=== PATIENT | male | born 1970 | race Caucasian/White ===

== ENCOUNTER 2020-11-10 19:46 | Observation (INO) | payer BC ==
[~2020-11-10 19:46] MED LIST: Heparin 10,000 UNITS/ 10 ML VIAL ONE; Iopamidol-370 76% 500 ML 1 ML ONE
[2020-11-10] MEDS ORDERED: Aspirin Chewable 81 MG TAB ONE (20:11)
--- NOTE | 2020-11-10 20:16 | RAD ---
Portable frontal chest radiograph: 11/10/2020 COMPARISON: None HISTORY: Shortness of breath with exertion FINDINGS: Midline sternotomy wires are present. There is prominence of the cardiac silhouette. Mild i ncreased linear interstitial density noted, particularly laterally on the right. Mild elevation of the right hemidiaphragm noted. No focal consolidation or alveolar edema. IMPRESSION: Portable chest radiograph as detailed above.
[2020-11-10 20:20] LABS: #Basophils 0.1 thou/uL (0.0-0.2); #Eosinphils 0.2 thou/uL (0.0-0.7); #Lymphocytes 2.1 thou/uL (1.20-3.40); #Monocytes 0.9 thou/uL (0.11-0.59); #Neutrophils 8.3 thou/uL (1.40-6.50); %Eosinophils 1.4 % (0.0-10.0); %Lymphocytes 17.8 % (21.0-51.0); %Monocytes 7.8 % (0.0-10.0); %Neutrophils 72.1 % (42.0-75.0); Hemoglobin 17.4 g/dL (14.0-18.0); Mean Corpuscular HGB CONC 34.4 g/dL (32.0-36.0); Mean Corpuscular Hemoglobin 33.8 pg (27.0-31.0); Mean Corpuscular Volume 98.4 fL (78.0-98.0); Platelet Count 248 thou/uL (130-400); RBC Distribution Width 13.5 % (11.5-14.5); Red Blood Cell (RBC) Count 5.14 mill/uL (4.70-6.10); White Blood Cell (WBC) Count 11.5 thou/uL (4.8-10.8)
[2020-11-10] MEDS ORDERED: Fentanyl 100 MCG/2 ML VIAL ONE ×2 (20:22→20:44)
[2020-11-10] MEDS ORDERED: Adenosine 6 MG/2 ML VIAL ONE ×3 (20:26→20:50)
[2020-11-10 20:30] LABS: Prothrombin Time 12.9 sec (12.0-14.7)
[2020-11-10 20:38] LABS: Anion Gap 12 mmol/L (10-20); BUN (Urea Nitrogen) 15 mg/dL (8.9-20.6); Calc. Creatinine Clearance 0 mL/min (70-130); Carbon Dioxide 28 mmol/L (22-29); Chloride 104 mmol/L (98-107); Sodium 140 mmol/L (136-145)
[2020-11-10 20:39] LABS: ALT (SGPT) 31 U/L (8-55); AST (SGOT) 30 U/L (5-34); Albumin 4.1 g/dL (3.5-5.0); Alkaline Phosphatase 67 U/L (40-110); Bilirubin, Total 0.8 mg/dL (0.2-1.2); Calcium 9.5 mg/dL (7.8-10.44); Globulin 3.5 g/dL (2.4-3.5); Glucose 98 mg/dL (70-105); Protein, Total 7.6 g/dL (6.0-8.3)
[2020-11-10] MEDS ORDERED: Nitroglycerin 50 MG/250 ML BOT 250 ML ONE (20:42)
[2020-11-10] MEDS ORDERED: Metoprolol Tartrate 5 MG/5 ML VIAL ONE (20:42)
[2020-11-10] MEDS ORDERED: Midazolam HCl 2 mg/2 ml Vial ONE (20:44)
[2020-11-10] MEDS ORDERED: Verapamil 5 MG/2 ML VIAL ONE (20:50)
[2020-11-10] MEDS ORDERED: Nitroglycerin 100MG/250ML BOT 0 ML ONE (20:50)
[2020-11-10 21:04] LABS: CKMB 2.6 ng/mL (0-6.6)
[2020-11-10] MEDS ORDERED: Sodium Chloride 0.9% 200 ML IV PRN (21:06)
[2020-11-10] MEDS ORDERED: Nitroglycerin 0.4 MG TAB (25 Tab Bottle) SL PRN (21:06)
[2020-11-10] MEDS ORDERED: Acetaminophen/Codeine 30-300mg Tablet PO PRN ×2 (21:06)
[2020-11-10] MEDS ORDERED: Sodium Chloride 0.9% 1,000 ML IV SCH (21:15)
--- NOTE | 2020-11-10 23:45 | CT ---
CT angiogram chest: 11/10/2020 COMPARISON: None HISTORY: Elevated d-dimer TECHNIQUE: Axial CT imaging at 2.5 mm intervals through the chest with IV contrast using CT angiogram protocol. Coronal and sagittal 3-D reformatted imaging obtained. FINDINGS: The visualized upper abdomen demonstrates no acute findings. No significant pleural, perica rdial, or mediastinal fluid. No axillary, hilar, or mediastinal lymphadenopathy. Coronary arterial calcification is present. There is a mechanical aortic valve and stent material in the region of the ascending aorta. Midline sternotomy wires are present. No discrete pulmonary arterial filling defect is seen to suggest the presence of acute pulmonary teresita rial embolism. There is nonspecific mild linear interstitial density within the left upper lobe. There is focal mass like somewhat rounded increased density within the posterior inferior aspect of the left lower lobe abutting the pleural surface which could represent infectious pneumonitis/aspiration and or rounded a telectasis. Malignancy cannot be fully excluded but is felt less likely. There is irregular linear increased interstitial density diffusely within the right upper lobe yarder operator iorly/laterally adjacent to pulmonary venous structures. There is mild increased linear interstitial density within the right middle lobe. There is nonspecific hazy groundglass opacity within the right lower lobe, most prominent within the posterior inferior right lower lobe. Review of the osseous structures demonstrates no worrisome lytic or blastic bone lesion. IMPRESSION: 1. No evidence for acute pulmonary arterial embolism. 2. Interstitial prominence with hazy groundglass opacity within the right lower lobe may signify asym metric interstitial edema within the right lower lobe and/or infectious pneumonitis. 3. Masslike rounded focal opacity in the inferior posterior aspect of the left lower lobe which may s ignify rounded atelectasis, infectious pneumonitis, or aspiration. Recommend follow-up CT of the chest in 3 months to reevaluate. 4. Nonspecific diffuse irregular interstitial density throughout the lateral right upper lobe may sig nify nonspecific infectious pneumonitis and/or asymmetric edema. CODE T
[2020-11-11 00:18] VITALS: BMI 37.9
[2020-11-11] MEDS: Metoprolol Tartrate 25 MG TAB PO SCH ×2 (09:02→19:57)
[2020-11-11 10:43] LABS: CKMB 7.2 ng/mL (0-6.6); Critical Call CKMB 0; Troponin I 0.558 ng/mL (< 0.028)
[2020-11-11 14:03] LABS: SARS-CoV-2 PCR NAA for Saliva Not Detected (NotDetected)
--- NOTE | 2020-11-11 18:13 | DIS ---
DATE OF ADMISSION: 11/10/2020 DATE OF DISCHARGE: 11/11/2020 DISCHARGE DIAGNOSES: 1. Acute onset shortness of breath. 2. Severe aortic stenosis. PROCEDURES: 1. CT scan of the chest, negative for PE. 2. Coronary angiography with no significant coronary artery disease. HOSPITAL COURSE: Mr. Sheth is a 50-year-old gentleman who was seen and evaluated in the emergency room. There was suggestive of acute myocardial infarction. He underwent urgent coronary angiography with possible PCI, and was not found to have significant coronary artery disease. Heart rate did appear to improve while in the cardiac cath tech. Based on the acute onset shortness of breath, also recommend a D-dimer. It was slightly elevated and a CT scan of the chest was performed. There were several nonspecific findings, but no suggestion of PE. The patient did have atelectasis with a followup CT scan recommended in 3 months. Echo with doppler was performed on 11/11/2020 and did suggest severe aortic stenosis. The aortic valve was not well visualized. The patient did feel much better after diuresis and improvement in heart rate. I discussed proceeding with JOANA on Friday. The patient would like to go home and have this done as an outpatient. The patient does appear stable for discharge with no acute findings. DISCHARGE MEDICATIONS: 1. Metoprolol 12.5 mg p.o. b.i.d. 2. Aspirin 325 q.a.m. CONDITION ON DISCHARGE: Stable. Job ID: [id number]
--- NOTE | 2020-11-11 18:16 | CON ---
DATE OF CONSULTATION: 11/10/2020 CHIEF COMPLAINT: Shortness of breath and abnormal EKG. HISTORY: Mr. Sheth is a 50-year-old gentleman with history of bioprosthetic aortic valve replacement x2 with last occurring in May 2013, who recently presented with acute onset shortness of breath. He states it has been intermittent over the last several days. Mild chest pressure noted. He was seen and admitted in the emergency room, where he thought he was going to be seen and discharged. He had an EKG performed that read out as acute [place]. There may have been some lateral changes, but not clear enough to suggest acute myocardial infarction, but did have lateral changes and we are unknown whether acute. PAST MEDICAL HISTORY: Aortic stenosis, status post AVR x2; previous tobacco abuse. HOME MEDICATIONS: Multivitamin. ALLERGIES: NONE. SURGICAL HISTORY: As above. REVIEW OF SYSTEMS: A 10-point review of systems is reviewed as above, otherwise negative. PHYSICAL EXAMINATION: VITAL SIGNS: Blood pressure 150/114, pulse 134, respirations 20. GENERAL: The patient is a pleasant gentleman, in no acute distress, appears stated age. HEAD, EYES, EARS, NOSE AND THROAT: Sclerae without icterus. MOUTH: Moist mucous membranes, normal palate. NECK: No jugular venous distention. Carotid upstroke is brisk. No bruits bilaterally. LUNGS: Clear to auscultation. HEART: Regular rate and rhythm with 2 to 3 over 6 systolic ejection murmur. ABDOMEN: Soft, nontender, nondistended. EXTREMITIES: No edema. PERTINENT LABORATORY DATA: Hemoglobin 17.4, hematocrit 50.5, platelet count 248. ER COURSE: I was concerned about the consistent heart rate in the 130s. The patient was given adenosine x2 and was suggestive of sinus tach, not atrial flutter. IMPRESSION: 1. ST-T wave changes suggesting acute myocardial infarction. 2. Sinus tachycardia. 3. Aortic stenosis. RECOMMENDATIONS: Mr. Sheth does appear to be short of breath and diaphoretic, but no chest pain noted. Based on his most recent EKG, we would recommend urgent coronary angiography plus PCI. I discussed the procedure in full detail with Mr. Sheth. The risks include, but not limited to the following: , stroke, [place], need for emergency surgery, loss of limb, bleeding, and infection, as well as a reaction to the dye causing kidney failure and needing long-term dialysis. I also discussed the risks of PCI to include all of the above including coronary dissection and perforation in addition to acute stent thrombosis and restenosis. All questions about the procedure were answered. Given the above, the patient agreed to proceed with coronary angiography and possible PCI. All questions were answered. Given the above, the patient agreed to proceed with above procedure. Further recommendations pending the above. Job ID: [id number]
[2020-11-11 19:56] VITALS: BP 146/99; TEMP 99.1
[2020-11-12] MEDS ORDERED: Aspirin 325 MG TAB PO SCH (09:00)
== END 2020-11-11 20:14 | disposition home or self-care (01) ==
LOC: ERS 19:46 → SDC/OP 20:38 → 2NO 21:01
PROVIDERS: ADMIT Internal Medicine Cardiovascular Disease; ATTEND Internal Medicine Cardiovascular Disease
PROC: 4A023N7 Measurement of Cardiac Sampling and Pressure, Left Heart, Percutaneous Approach (ICD-10-PCS; principal; 2020-11-10)
PROC: B2111ZZ Fluoroscopy of Multiple Coronary Arteries using Low Osmolar Contrast (ICD-10-PCS; 2020-11-10)
DX: I35.0 Nonrheumatic aortic (valve) stenosis (principal); R06.02 Shortness of breath; R00.0 Tachycardia, unspecified; R94.31 Abnormal electrocardiogram [ECG] [EKG]; F17.290 Nicotine dependence, other tobacco product, uncomplicated; Z95.2 Presence of prosthetic heart valve; Z20.822 Contact with and (suspected) exposure to COVID-19
CPT/HCPCS: 36415; 71045; 71275; 76942; 80053; 82553; 83880; 84484; 85025; 85379; 85610; 85730; 87635; 93005; 93306; 93454; 94760; 99152; J0153; J2250; J3010; U0003; U0005

== ENCOUNTER 2020-11-11 22:04 | Inpatient (IN) | payer BC ==
[2020-11-11 22:27] LABS: #Basophils 0.1 thou/uL (0.0-0.2); #Eosinphils 0.1 thou/uL (0.0-0.7); #Lymphocytes 0.7 thou/uL (1.20-3.40); #Monocytes 0.7 thou/uL (0.11-0.59); #Neutrophils 15.4 thou/uL (1.40-6.50); %Basophils 0.4 % (0.0-1.0); %Eosinophils 0.4 % (0.0-10.0); %Lymphocytes 4.1 % (21.0-51.0); %Neutrophils 91.1 % (42.0-75.0); Hemoglobin 16.8 g/dL (14.0-18.0); Mean Corpuscular Hemoglobin 35.2 pg (27.0-31.0); Mean Platelet Volume 8.2 fL (7.4-10.4); Platelet Count 217 thou/uL (130-400); RBC Distribution Width 13.6 % (11.5-14.5); Red Blood Cell (RBC) Count 4.76 mill/uL (4.70-6.10); White Blood Cell (WBC) Count 16.9 thou/uL (4.8-10.8)
--- NOTE | 2020-11-11 22:41 | RAD ---
Portable frontal chest radiograph: 11/11/2020 COMPARISON: 11/10/2020 HISTORY: Short of breath FINDINGS: There is nonspecific interstitial opacity in the perihilar regions and both lung bases, rig ht greater than left, more prominent on the right when compared to the prior exam. Heart and mediastinal contours are stable with stable prominence of the cardiac silhouette and stable midline s ternotomy wires. No pneumothorax or large volume pleural effusion. IMPRESSION: Nonspecific interstitial and alveolar opacity, right greater than left, worsened when com pared to the prior examination. Findings may be on the basis of nonspecific infectious pneumonitis/aspiration and/or pulmonary edema. Recommend follow-up imaging following treatment to doc ument resolution.
[2020-11-11 22:46] LABS: ALT (SGPT) 22 U/L (8-55); AST (SGOT) 20 U/L (5-34); Albumin 3.6 g/dL (3.5-5.0); Alkaline Phosphatase 57 U/L (40-110); Anion Gap 17 mmol/L (10-20); BUN (Urea Nitrogen) 11 mg/dL (8.9-20.6); Bilirubin, Total 1.2 mg/dL (0.2-1.2); CK (CPK) 100 U/L (30-200); Calc. Creatinine Clearance 0 mL/min (70-130); Calcium 8.7 mg/dL (7.8-10.44); Carbon Dioxide 20 mmol/L (22-29); Chloride 105 mmol/L (98-107); Globulin 2.8 g/dL (2.4-3.5); Glucose 174 mg/dL (70-105); Lipase 9 U/L (8-78); Potassium 4.1 mmol/L (3.5-5.1); Protein, Total 6.4 g/dL (6.0-8.3); Sodium 138 mmol/L (136-145)
[2020-11-11 22:53] LABS: Critical Call Chem Troponin I RESULT DECREASING
[2020-11-11 23:11] LABS: CKMB 3.3 ng/mL (0-6.6)
[2020-11-11] MEDS ORDERED: cefTRIAXone\\ROCEPHIN 2 GM VIAL ONE (23:31)
[2020-11-12 00:10] LABS: Actual Bicarbonate (HCO3a) 19.8 mEq/L (22-28); Analyzer IN Cardio ER; Base Excess (BEa) -2.6 mEq/L (-2.0 to +3.0); CO2 Tension 29.1 mmHg (35.0-45.0); Calcium, Ionized (arterial) 1.19 mmol/L (1.12-1.30); Carboxyhemoglobin (COHb) 0.8 gm% (0.0-3.0); Potassium - ABG Lab 3.93 mmol/L (3.70-5.30); pH, Arterial 7.45 (7.35-7.45)
[2020-11-12 00:12] LABS: ALV-art Gradient 69.745 mmHg (0-20); Puncture Site RRA
[2020-11-12] MEDS ORDERED: Acetaminophen 325 MG TAB PO PRN (00:26)
[2020-11-12] MEDS ORDERED: Azithromycin 500 MG VIAL ONE (00:29)
[2020-11-12] MEDS ORDERED: GUAIFENESIN SF SOLN 200 MG/10 ML UDCUP PO PRN (00:29)
[2020-11-12] MEDS ORDERED: hydrALAZINE 20 MG/ML VIAL SLOW IVP PRN (00:29)
--- NOTE | 2020-11-12 00:35 | PDOC.HHP ---
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 He underwent cardiac cath with normal coronaries but evidence worrisome for recurrent aortic stenosis as per cardiology, he was initially recommended to remain inpatient on TTE on Friday but patient insisted on leaving and was discharged home. Upon getting home today patient admits to worsening shortness of breath as well as worsening cough. He states he had one episode of hemoptysis with his sputum. He denies any recurrence of chest pain. He denies any nausea vomiting. Cough symptoms still continue to persist. On presenting to the ED was noted with O2 sat in the 80s. He has been given supplemental oxygen and his O2 sat is satting above 94 well on 1 L. He admits to recent vaping but no active tobacco use now. Chest x-ray shows persistent bilateral interstitial infiltrate worrisome for possible pneumonitis/pneumonia versus pulmonary edema. He had a CTA done yesterday that was also of similar findings with no evidence of PE. His BNP is elevated at 1450. His D-dimer is marginally elevated at 0.99. His initial check of cardiac enzyme shows mild elevated troponin. EKG is relatively unchanged with LVH and ST segment depression. He has been admitted for presumed aspiration pneumonia versus acute pulmonary edema from aortic stenosis. Allergies/Adverse Reactions: Allergy/AdvReac Type Severity Reaction Status Date / Time No Known Drug Allergies Allergy Verified 11/10/20 22:03 Home Medications: Medication Instructions Recorded Confirmed Type Aspirin 325 mg PO DAILY 30 Days #30 tab 11/11/20 Rx Metoprolol Tartrate [Lopressor] 12.5 mg PO BID 30 Days #60 tab 11/11/20 Rx Past History: PMHx: Hypertension Chronic tobacco use Aortic stenosis status post replacement PSHx: Aortic valve replacement FHx: Grandmother with coronary artery disease Social: Lives in the family with the spouse, fully functional at baseline, admit to nicotine vaping, no history of alcohol or illicit drug use Hospitalist HPI ROS ROS unobtainable: due to mental status All other systems reviewed; all pertinent +/- noted in HPI/Subj Hospitalist Exam General Appearance: NAD, awake alert General - other findings: obese Eye: PERRL, anicteric sclera ENT: normocephalic atraumatic, no oropharyngeal lesions Neck: supple, symmetric Heart: RRR, no murmur Respiratory: no ronchi, normal chest expansion, normal percussion, rales, rhonchi Gastrointestinal: soft, non-tender, no palpable masses Extremities: no cyanosis, no clubbing Skin: normal turgor, no lesions Neurological: cranial nerve grossly intact, no focal deficits Musculoskeletal: normal tone, normal strength Psychiatric: normal affect, normal behavior, A&O x 3, oriented to place Hospitalist Results Result Diagrams: 11/11/20 22:17 11/11/20 22:17 Lab results: Laboratory Last Values WBC 16.9 thou/uL (4.8-10.8) H 11/11/20 22:17 RBC 4.76 mill/uL (4.70-6.10) 11/11/20 22:17 Hgb 16.8 g/dL (14.0-18.0) 11/11/20 22:17 Hct 47.9 % (42.0-52.0) 11/11/20 22:17 MCV 101.0 fL (78.0-98.0) H 11/11/20 22:17 MCH 35.2 pg (27.0-31.0) H 11/11/20 22:17 MCHC 35.0 g/dL (32.0-36.0) 11/11/20 22:17 RDW 13.6 % (11.5-14.5) 11/11/20 22:17 Plt Count 217 thou/uL (130-400) 11/11/20 22:17 MPV 8.2 fL (7.4-10.4) 11/11/20 22:17 Neutrophils % 91.1 % (42.0-75.0) H 11/11/20 22:17 Lymphocytes % 4.1 % (21.0-51.0) L 11/11/20 22:17 Monocytes % 4.0 % (0.0-10.0) 11/11/20 22:17 Eosinophils % 0.4 % (0.0-10.0) 11/11/20 22:17 Basophils % 0.4 % (0.0-1.0) 11/11/20 22:17 Neutrophils # 15.4 thou/uL (1.40-6.50) H 11/11/20 22:17 Lymphocytes # 0.7 thou/uL (1.20-3.40) L 11/11/20 22:17 Monocytes # 0.7 thou/uL (0.11-0.59) H 11/11/20 22:17 Eosinophils # 0.1 thou/uL (0.0-0.7) 11/11/20 22:17 Basophils # 0.1 thou/uL (0.0-0.2) 11/11/20 22:17 D-Dimer 0.99 *mcg/mL (0.27-0.43) H 11/11/20 22:17 Specimen Type ARTERIAL 11/12/20 00:05 Puncture Site RRA 11/12/20 00:05 Bicarbonate Actual 19.8 mEq/L (22-28) L 11/12/20 00:05 ABG pH 7.45 (7.35-7.45) 11/12/20 00:05 ABG pCO2 29.1 mmHg (35.0-45.0) L 11/12/20 00:05 ABG pO2 65.0 mmHg (80.0-100.0) L 11/12/20 00:05 ABG O2 Sat (Measured) 93.6 % (94.0-98.0) L 11/12/20 00:05 ABG O2 Content 22.0 vol% (18.0-21.0) H 11/12/20 00:05 ABG Base Excess -2.6 mEq/L (-2.0 to +3.0) L 11/12/20 00:05 ABG Hematocrit 50.0 % (42.0-52.0) 11/12/20 00:05 ABG Hemoglobin 17.0 g/dL (14.0-18.0) 11/12/20 00:05 ABG Oxyhemoglobin 92.3 % (94.0-98.0) L 11/12/20 00:05 ABG Carboxyhemoglobin 0.8 gm% (0.0-3.0) 11/12/20 00:05 ABG Methemoglobin 0.60 gm% (0.04-1.52) 11/12/20 00:05 ABG Deoxyhemoglobin 6.3 % (0.0-2.9) H 11/12/20 00:05 Jordan Test POSITIVE 11/12/20 00:05 A-a O2 Gradient 69.745 mmHg (0-20) H 11/12/20 00:05 Sodium 134 mmol/L (135-148) L 11/12/20 00:05 Potassium 3.93 mmol/L (3.70-5.30) 11/12/20 00:05 Chloride 106 mmol/L (98-106) 11/12/20 00:05 Ionized Calcium 1.19 mmol/L (1.12-1.30) 11/12/20 00:05 Mode of Support NC 11/12/20 00:05 Inspired O2 24 % 11/12/20 00:05 Sodium 138 mmol/L (136-145) 11/11/20 22:17 Potassium 4.1 mmol/L (3.5-5.1) 11/11/20 22:17 Chloride 105 mmol/L (98-107) 11/11/20 22:17 Carbon Dioxide 20 mmol/L (22-29) L 11/11/20 22:17 Anion Gap 17 mmol/L (10-20) 11/11/20 22:17 BUN 11 mg/dL (8.9-20.6) 11/11/20 22:17 Creatinine 1.14 mg/dL (0.7-1.3) 11/11/20 22:17 Estimated GFR (MDRD) 68 11/11/20 22:17 Glucose 174 mg/dL (70-105) H 11/11/20 22:17 Lactic Acid 1.6 mmol/L (0.5-2.2) 11/11/20 23:21 Calcium 8.7 mg/dL (7.8-10.44) 11/11/20 22:17 Total Bilirubin 1.2 mg/dL (0.2-1.2) 11/11/20 22:17 AST 20 U/L (5-34) 11/11/20 22:17 ALT 22 U/L (8-55) 11/11/20 22:17 Alkaline Phosphatase 57 U/L (40-110) 11/11/20 22:17 Creatine Kinase 100 U/L (30-200) 11/11/20 22:17 CK-MB (CK-2) 3.3 ng/mL (0-6.6) 11/11/20 22:17 Troponin I 0.386 ng/mL (< 0.028) H* 11/11/20 22:17 B-Natriuretic Peptide 1430.3 pg/mL (0-100) H 11/11/20 23:21 Serum Total Protein 6.4 g/dL (6.0-8.3) 11/11/20 22:17 Albumin 3.6 g/dL (3.5-5.0) 11/11/20 22:17 Globulin 2.8 g/dL (2.4-3.5) 11/11/20 22:17 Albumin/Globulin Ratio 1.3 g/dL (1.2-2.2) 11/11/20 22:17 Lipase 9 U/L (8-78) 11/11/20 22:17 Hospitalist H&P A/P (1) Acute cardiogenic pulmonary edema Status: Acute (2) Aortic stenosis, residual Code(s): I35.0 - NONRHEUMATIC AORTIC (VALVE) STENOSIS Status: Acute (3) Elevated troponin Code(s): R77.8 - OTHER SPECIFIED ABNORMALITIES OF PLASMA PROTEINS Status: Acute (4) Pneumonia Code(s): J18.9 - PNEUMONIA, UNSPECIFIED ORGANISM Status: Acute Plan: Acute pulmonary edema/interstitial pneumonitispossibly due to aortic stenosis recurrence We will follow cardiology plan for JOANA on Friday Start empirical Lasix every 12 Based on chest x-ray and CT finding, high suspicion foracute pulmonary edema from aortic stenosis versus Covid interstitial pneumonia -Initial Covid testing yesterday was negative we will obtain repeat with PCR today Monitor O2 sat pattern with diuresis Avoid fluid overload Follow BNP trend We will consult cardiology Elevated troponinstatus post negative cardiac cath yesterday, continue aspirin Aortic stenosis status post replacement with possible recurrent prosthetic stenosis Follow cardiology DVT prophylaxissubcutaneous Lovenox despite transient hemoptysis Advanced directivediscussed with patient, he wishes full code.
[2020-11-12 00:37] LABS: SARS-CoV-2 NAA Rapid Test Not Detected (NotDetected)
[2020-11-12] MEDS ORDERED: Furosemide 40 MG/4 ML VIAL SLOW IVP SCH (00:45)
[2020-11-12] MEDS ORDERED: Furosemide 20 MG/2 ML VIAL ONE ×2 (01:17→01:20)
[2020-11-12] MEDS ORDERED: Lorazepam 2 MG/ML VIAL ONE (01:25)
[2020-11-12] MEDS ORDERED: Furosemide 100 MG in Sodium Chloride 0.9% 90 ML IVPB SCH (02:30)
[2020-11-12 05:04] VITALS: BMI 38.0
[2020-11-12 05:11] LABS: Band 6 % (5-11); Hemoglobin 17.7 g/dL (14.0-18.0); Lymphocytes 2 % (21-51); MDiff Complete? YES; Mean Corpuscular HGB CONC 34.2 g/dL (32.0-36.0); Mean Corpuscular Hemoglobin 34.6 pg (27.0-31.0); Mean Platelet Volume 8.5 fL (7.4-10.4); Monocytes 12 % (0-10); Neutrophil 80 % (42-75); Platelet Count 213 thou/uL (130-400); Platelet Morphology Comment Appears Adequate; RBC Distribution Width 13.6 % (11.5-14.5); RBC Morphology Normal; Red Blood Cell (RBC) Count 5.12 mill/uL (4.70-6.10); White Blood Cell (WBC) Count 20.2 thou/uL (4.8-10.8)
[2020-11-12 05:13] LABS: ALT (SGPT) 22 U/L (8-55); AST (SGOT) 22 U/L (5-34); Albumin 3.8 g/dL (3.5-5.0); Alkaline Phosphatase 59 U/L (40-110); Anion Gap 15 mmol/L (10-20); BUN (Urea Nitrogen) 12 mg/dL (8.9-20.6); Bilirubin, Total 0.9 mg/dL (0.2-1.2); Calc. Creatinine Clearance 130 mL/min (70-130); Carbon Dioxide 20 mmol/L (22-29); Chloride 105 mmol/L (98-107); Globulin 3.6 g/dL (2.4-3.5); Glucose 117 mg/dL (70-105); Potassium 4.4 mmol/L (3.5-5.1); Protein, Total 7.4 g/dL (6.0-8.3); Sodium 136 mmol/L (136-145)
[2020-11-12 05:29] LABS: CKMB 4.4 ng/mL (0-6.6)
[2020-11-12] MEDS: Furosemide 40 MG/4 ML VIAL SLOW IVP SCH ×2 (07:00→14:07)
[2020-11-12] MEDS ORDERED: Metoprolol Tartrate 25 MG TAB ONE (08:51)
[2020-11-12] MEDS ORDERED: Famotidine 20 MG TAB ONE (08:51)
[2020-11-12] MEDS ORDERED: Enoxaparin Sodium 40 MG/0.4 ML SYRINGE ONE (08:51)
[2020-11-12] MEDS ORDERED: Aspirin Chewable 81 MG TAB ONE (08:51)
[2020-11-12] MEDS ORDERED: Enoxaparin Sodium 40 MG/0.4 ML SYRINGE SC SCH (09:00)
[2020-11-12] MEDS ORDERED: Famotidine 20 MG TAB PO SCH (09:00)
[2020-11-12] MEDS: guaiFENesin ER 600 MG TAB PO SCH ×2 (10:50→20:23)
[2020-11-12] MEDS: Zinc Sulfate 220 MG CAP PO SCH (10:50)
[2020-11-12] MEDS: Aspirin Chewable 81 MG TAB PO SCH (10:50)
[2020-11-12] MEDS: Metoprolol Tartrate 25 MG TAB PO SCH ×2 (10:53→20:24)
--- NOTE | 2020-11-12 12:22 | PRG ---
DATE OF SERVICE: SUBJECTIVE: Mr. Sheth returned to the emergency room with increased shortness of breath and diaphoresis and tachycardia. He was discharged yesterday. I did discuss proceeding with a JOANA on Friday. The patient preferred going home and having this as an outpatient. He is currently stable. He was given Lasix and placed on BiPAP. He is much improved. OBJECTIVE: VITAL SIGNS: Current vital signs; blood pressure 120/95, pulse 84, temperature afebrile. LUNGS: Clear to auscultation. HEART: Regular rate and rhythm with 2/6 systolic ejection murmur. ABDOMEN: Soft, nontender, nondistended. EXTREMITIES: No edema. PERTINENT LABORATORY DATA: Hemoglobin 17.7. Creatinine 1.06. Peak troponin 0.45. IMPRESSION: 1. Recurrent shortness of breath. 2. Severe aortic stenosis. RECOMMENDATIONS: At this point, now that Mr. Sheth is back in the hospital, we would recommend proceeding with JOANA tomorrow. I discussed procedure in full detail with Mr. Sheth. Risks include, but not limited to following: , stroke, damage to teeth, mouth, back of throat; damage to esophagus, as well as reaction to medication. All questions were answered. Given the above, the patient agreed to proceed with procedure. The patient has not had fevers or chills at home. I would think his chest x-ray is more consistent with pulmonary edema versus pneumonitis or pneumonia. We will continue to monitor closely overnight. Job ID: [id number]
--- NOTE | 2020-11-12 15:46 | PDOC.BPN ---
- Brief Progress Note Encounter Date: 11/12/20 (f/u acute resp failure) Encounter Time: 15:41 Pt evaluated and he reports feeling back to normal. He denies any chest pain, difficulty breathing or any other concerns. VS reviewed - pulse 100's tele - sinus with ST depression and rate 100's. BP 90s systolic gen - awake, alert, responsive heart - 3/6 SARAH lungs ctab with good air movement abd - soft with present bowel sounds Imp: Severe aortic stenosis with acute respiratory failure with hypoxia secondary to acute onset heart failure with elevated troponin - Continue IV lasix - JOANA with Cardiology tomorrow - continue beta sy Leukocytosis - continue antibiotics for now and monitor for continued need no indication for GI prophylaxis - d/c procedure tomorrow - d/c lovenox No questions or further needs at end of eval, pt demonstrates understanding and agrees iwth plan of care.
[2020-11-12] MEDS ORDERED: FLU VACC QS2020-21(6MOS UP)/PF 60 MCG/0.5 ML SYRINGE IM ONE (18:00)
[2020-11-13] MEDS: cefTRIAXone\\ROCEPHIN 1 GM in Sodium Chloride 0.9% 100 ML IVPB SCH (00:04)
[2020-11-13 03:48] LABS: #Basophils 0.1 thou/uL (0.0-0.2); #Eosinphils 0.2 thou/uL (0.0-0.7); #Lymphocytes 1.6 thou/uL (1.20-3.40); #Monocytes 0.7 thou/uL (0.11-0.59); #Neutrophils 8.2 thou/uL (1.40-6.50); %Basophils 0.6 % (0.0-1.0); %Eosinophils 2.2 % (0.0-10.0); %Lymphocytes 14.7 % (21.0-51.0); %Monocytes 6.6 % (0.0-10.0); %Neutrophils 75.8 % (42.0-75.0); Hemoglobin 15.6 g/dL (14.0-18.0); Mean Corpuscular HGB CONC 34.5 g/dL (32.0-36.0); Mean Corpuscular Volume 98.6 fL (78.0-98.0); Mean Platelet Volume 8.4 fL (7.4-10.4); Platelet Count 199 thou/uL (130-400); RBC Distribution Width 13.5 % (11.5-14.5); Red Blood Cell (RBC) Count 4.59 mill/uL (4.70-6.10); White Blood Cell (WBC) Count 10.7 thou/uL (4.8-10.8)
[2020-11-13 04:12] LABS: Anion Gap 15 mmol/L (10-20); BUN (Urea Nitrogen) 24 mg/dL (8.9-20.6); Calc. Creatinine Clearance 151 mL/min (70-130); Calcium 8.5 mg/dL (7.8-10.44); Carbon Dioxide 22 mmol/L (22-29); Chloride 104 mmol/L (98-107); Glucose 95 mg/dL (70-105); Potassium 3.5 mmol/L (3.5-5.1); Sodium 137 mmol/L (136-145)
[2020-11-13] MEDS: Furosemide 40 MG/4 ML VIAL SLOW IVP SCH ×2 (05:23→13:57)
[2020-11-13] MEDS: Aspirin Chewable 81 MG TAB PO SCH (09:12)
[2020-11-13] MEDS: Metoprolol Tartrate 25 MG TAB PO SCH ×2 (09:12→20:30)
[2020-11-13] MEDS: guaiFENesin ER 600 MG TAB PO SCH ×2 (09:12→20:29)
[2020-11-13] MEDS: Zinc Sulfate 220 MG CAP PO SCH (09:14)
--- NOTE | 2020-11-13 13:51 | PRG ---
DATE OF SERVICE: 11/13/2020 SUBJECTIVE: Mr. Sheth is currently doing better. No current complaints. He states he is breathing better after Lasix. OBJECTIVE: VITAL SIGNS: Blood pressure , pulse 105, respirations 20. LUNGS: Clear to auscultation. HEART: Regular rate and rhythm with 2/6 systolic ejection murmur. ABDOMEN: Soft, nontender, nondistended. EXTREMITIES: No edema. DIAGNOSTIC DATA: Repeat echo suggesting significant increased velocities with mean and peak gradient of 113 and 73 suggesting severe aortic stenosis. IMPRESSION: 1. Severe aortic stenosis. 2. Congestive heart failure. 3. Status post AVR. RECOMMENDATIONS: It appears Mr. Sheth's both recent episodes were likely related to CHF from aortic stenosis. I discussed case with Dr. Felipe Cardona. We will review the echo. If needed, I would proceed with JOANA, but at this point, may have enough information to proceed with mechanical aortic valve. The patient is now amenable to proceeding with mechanical aortic valve Job ID: [id number]
--- NOTE | 2020-11-13 15:43 | PDOC.HOSPP ---
- Subjective Encounter Date: 11/13/20 Encounter Time: 11:30 Subjective: no sob or palp feels better - Objective Vital Signs & Weight: Vital Signs (12 hours) Temp Pulse Ox 11/13/20 11:05 96 11/13/20 08:00 99 11/13/20 07:00 98.7 F Weight Admit Weight 3.757 oz Weight 229 lb 0.964 oz Most Recent Monitor Data Heart Rate from ECG 105 NIBP 128/104 NIBP BP-Mean 112 Respiration from ECG 25 SpO2 96 I&O: 11/12/20 11/13/20 11/14/20 06:59 06:59 06:59 Intake Total 444 Output Total 1850 450 Balance -1406 -450 Result Diagrams: 11/13/20 03:18 11/13/20 03:18 Hospitalist ROS - Medication Medications: Active Medications Generic Name Dose Route Start Last Admin Trade Name Freq PRN Reason Stop Dose Admin Aspirin 81 mg 11/12/20 09:00 11/13/20 09:12 Aspirin Chewable 81 Mg Tab PO Not Given DAILY SABRINA Furosemide 40 mg 11/12/20 06:00 11/13/20 13:57 Furosemide 40 Mg/4 Ml Vial SLOW IVP 40 mg 0600,1400 SABRINA Administration Guaifenesin 1,200 mg 11/12/20 09:00 11/13/20 09:12 Guaifenesin Er 600 Mg Tab PO Not Given Q12HR SABRINA Ceftriaxone Sodium 1 gm/ 100 mls @ 200 mls/hr 11/12/20 23:59 11/13/20 00:04 Sodium Chloride IVPB 100 mls Q24HR SABRINA Administration Metoprolol Tartrate 12.5 mg 11/12/20 09:00 11/13/20 09:12 Metoprolol Tartrate 25 Mg Tab PO 12.5 mg BID SABRINA Administration Zinc Sulfate 220 mg 11/12/20 09:00 11/13/20 09:14 Zinc Sulfate 220 Mg Cap PO Not Given DAILY [facility] Hospitalist Exam Vitals: Vital Signs (12 hours) Temp Pulse Ox 11/13/20 11:05 96 11/13/20 08:00 99 11/13/20 07:00 98.7 F Weight Admit Weight 3.757 oz Weight 229 lb 0.964 oz Most Recent Monitor Data Heart Rate from ECG 105 NIBP 128/104 NIBP BP-Mean 112 Respiration from ECG 25 SpO2 96 General Appearance: awake alert Eye: PERRL, anicteric sclera ENT: no oropharyngeal lesions, moist mucosa Neck: supple, no JVD Heart: RRR, no gallops, murmur present Respiratory: no wheezes, no rales Gastrointestinal: soft, non-tender, non-distended, normal bowel sounds Extremities: no cyanosis, no edema Neurological: cranial nerve grossly intact, no focal deficits Psychiatric: normal affect, A&O x 3 Hosp A/P (1) Aortic stenosis, severe Code(s): I35.0 - NONRHEUMATIC AORTIC (VALVE) STENOSIS Status: Acute (2) Acute cardiogenic pulmonary edema Status: Acute (3) Acute respiratory failure with hypoxia Code(s): J96.01 - ACUTE RESPIRATORY FAILURE WITH HYPOXIA Status: Resolved (4) Obesity (BMI 30-39.9) Code(s): E66.9 - OBESITY, UNSPECIFIED Status: Chronic (5) H/O aortic valve replacement Code(s): Z95.2 - PRESENCE OF PROSTHETIC HEART VALVE Status: Chronic - Plan h/o porcine avr in 2012 and a prior procedure with sternotomy when he was 5 yrs old, now has severe aortic stenosis has done well with diuresis to evaluate patient for [facility] valve may dc aspirin, continue lopressor and lasix hemostable off bipap may tx to telemetry
[2020-11-13] MEDS: Temazepam 15 MG CAP PO PRN (20:30)
[2020-11-14] MEDS: cefTRIAXone\\ROCEPHIN 1 GM in Sodium Chloride 0.9% 100 ML IVPB SCH (00:44)
[2020-11-14 01:05] VITALS: TEMP 98.1
[2020-11-14] MEDS: Furosemide 40 MG/4 ML VIAL SLOW IVP SCH ×2 (05:09→14:40)
[2020-11-14] MEDS: Aspirin Chewable 81 MG TAB PO SCH (08:26)
[2020-11-14] MEDS: Metoprolol Tartrate 25 MG TAB PO SCH (08:27)
[2020-11-14] MEDS: guaiFENesin ER 600 MG TAB PO SCH (08:27)
[2020-11-14] MEDS: Zinc Sulfate 220 MG CAP PO SCH (08:27)
[2020-11-14] MEDS ORDERED: Metoprolol Tartrate 25 MG TAB PO SCH ×2 (09:30→21:00)
--- NOTE | 2020-11-14 10:37 | CON ---
DATE OF CONSULTATION: 11/13/2020 HISTORY OF PRESENT ILLNESS: Mr. Sheth is a 50-year-old gentleman, who has a long cardiac history. As an 8-year-old child he underwent sternotomy and what sounds like aortic valve commissurotomy. He had a congenitally bicuspid aortic valve. He apparently did well with this until 2012 when he was in [place] in congestive heart failure and underwent aortic valve replacement with [employer] bioprosthetic valve. The records from [place] did not indicate what size the valve was. Recent CT and echocardiographic measurements measure in the 20 mm range. He had a complicated postoperative course after his aortic valve replacement requiring balloon pump. The discharge summary states he had constrictive pericarditis and bilateral pneumothoraces and significant bleeding problems after his surgery. He has been in the hospital a couple of times recently with congestive failure symptoms. He has had an echocardiogram performed transthoracically, which shows a [id number] gradient of 113 and a mean gradient of 74. His peak velocity across the aortic valve is 532. On the most recent echo, the valve leaflets all appear to be mobile, but it is not very clear. He is due to get a transthoracic echocardiogram tomorrow. Currently, the patient is comfortable. He has been essentially at bedrest since his admission. He is slightly tachycardic with good perfusion pressures. PAST MEDICAL HISTORY: 1. Aortic stenosis, status post commissurotomy and subsequent aortic valve replacement. 2. Hypertension. PAST SURGICAL HISTORY: Aortic valve replacement in 2012, commissurotomy in the late . CURRENT MEDICATIONS: 1. Aspirin 325 mg daily. 2. Lopressor 12.5 mg b.i.d. ALLERGIES: NONE. SOCIAL HISTORY: He continues to smoke. He is . PHYSICAL EXAMINATION: GENERAL: This is a well-developed, well-nourished male, resting comfortably in the [facility]. VITAL SIGNS: His height is 5 feet and 7 inches and weight is 229 pounds. BSA is 2.22. Temperature is 98.7, pulse is 105 and regular, and blood pressure is 128/104. HEENT: Sclerae are nonicteric. Pupils are equal and round bilaterally. NECK: Supple. He has transmitted carotid bruits. CHEST: Clear. CARDIAC: Heart rhythm is regular. He has a significant aortic stenosis murmur. ABDOMEN: Soft and nontender. EXTREMITIES: There is mild edema. LABORATORY DATA: Of note, hemoglobin is 15.6, platelet count is 199,000. Potassium is 3.5 with a creatinine of 0.91. ASSESSMENT AND PLAN: I have had a long discussion with the patient in regard to his situation. He previously has declined mechanical aortic valve replacement, but I would not redo his valve with a bioprosthetic valve. He has agreed that he would take a mechanical valve at this point. My concerns are a couple. The valve leaflets appear to be mobile on the transthoracic echocardiogram. Hopefully, the transesophageal echocardiogram will further outline whether or not he truly has aortic valve restenosis or if this is some sort of other congenital problem including HOCUM or other left ventricular outflow tract obstruction. I will review the echo with Dr. Lindsey and we will make some further decisions. Job ID: [id number]
[2020-11-14] MEDS ORDERED: PROPOFOL 20 ML ONE (12:00)
[2020-11-14] MEDS: Temazepam 15 MG CAP PO PRN (14:51)
--- NOTE | 2020-11-14 17:16 | PDOC.HOSPP ---
- Subjective Encounter Date: 11/14/20 Encounter Time: 11:40 Subjective: no sob or palp at bedside - Objective Vital Signs & Weight: Vital Signs (12 hours) Pulse Ox 11/14/20 07:33 93 L Weight Admit Weight 3.757 oz Weight 225 lb 12.054 oz Most Recent Monitor Data Heart Rate from ECG 92 NIBP 105/86 NIBP BP-Mean 92 Respiration from ECG 20 SpO2 93 I&O: 11/13/20 11/14/20 11/15/20 06:59 06:59 06:59 Intake Total 444 1400 Output Total 1850 3030 1200 Balance -1406 -1630 -1200 Result Diagrams: 11/13/20 03:18 11/13/20 03:18 Hospitalist ROS - Medication Medications: Active Medications Generic Name Dose Route Start Last Admin Trade Name Freq PRN Reason Stop Dose Admin Aspirin 81 mg 11/12/20 09:00 11/14/20 08:26 Aspirin Chewable 81 Mg Tab PO 81 mg DAILY SABRINA Administration Furosemide 40 mg 11/12/20 06:00 11/14/20 14:40 Furosemide 40 Mg/4 Ml Vial SLOW IVP 40 mg 0600,1400 SABRINA Administration Guaifenesin 1,200 mg 11/12/20 09:00 11/14/20 08:27 Guaifenesin Er 600 Mg Tab PO 1,200 mg Q12HR SABRINA Administration Ceftriaxone Sodium 1 gm/ 100 mls @ 200 mls/hr 11/12/20 23:59 11/14/20 00:44 Sodium Chloride IVPB 100 mls Q24HR SABRINA Administration Temazepam 15 mg 11/13/20 17:21 11/14/20 14:51 Temazepam 15 Mg Cap PO 15 mg HS PRN Administration Insomnia Zinc Sulfate 220 mg 11/12/20 09:00 11/14/20 08:27 Zinc Sulfate 220 Mg Cap PO 220 mg DAILY SABRINA Administration Hospitalist Exam Vitals: Vital Signs (12 hours) Pulse Ox 11/14/20 07:33 93 L Weight Admit Weight 3.757 oz Weight 225 lb 12.054 oz Most Recent Monitor Data Heart Rate from ECG 92 NIBP 105/86 NIBP BP-Mean 92 Respiration from ECG 20 SpO2 93 General Appearance: awake alert Eye: PERRL, anicteric sclera ENT: no oropharyngeal lesions, moist mucosa Neck: supple, no JVD Heart: RRR, murmur present Respiratory: no wheezes, no rales Gastrointestinal: soft, non-tender, non-distended, normal bowel sounds Extremities: no cyanosis, no edema Neurological: cranial nerve grossly intact, no focal deficits Psychiatric: normal affect, A&O x 3 Hosp A/P (1) Aortic stenosis, severe Code(s): I35.0 - NONRHEUMATIC AORTIC (VALVE) STENOSIS Status: Acute (2) Acute cardiogenic pulmonary edema Status: Resolved (3) Acute respiratory failure with hypoxia Code(s): J96.01 - ACUTE RESPIRATORY FAILURE WITH HYPOXIA Status: Resolved (4) Obesity (BMI 30-39.9) Code(s): E66.9 - OBESITY, UNSPECIFIED Status: Chronic (5) H/O aortic valve replacement Code(s): Z95.2 - PRESENCE OF PROSTHETIC HEART VALVE Status: Chronic - Plan h/o porcine avr in 2012 and a prior procedure with sternotomy when he was 8 yrs old, now has severe aortic stenosis has done well with diuresis will be tx to [facility] for [facility] aortic valve/procedures, d/w and patient/ is aware. may dc aspirin, continue lopressor and lasix hemostable may tx to [facility] anytime they accept.
--- NOTE | 2020-11-15 08:12 | OP ---
DATE OF PROCEDURE: 11/14/2020 PREPROCEDURE DIAGNOSIS: Aortic stenosis. POSTPROCEDURE DIAGNOSIS: Aortic stenosis. PROCEDURE PERFORMED: JOANA. After discussion with Dr. Felipe Cardona, we decided to proceed with JOANA. Discussed procedure in full detail with Mr. Sheth. Risks include but not limited to the following: Damage to teeth, mouth, back of throat; damage to esophagus, as well as reaction to medication. All questions were answered. Given the above, the patient agreed to proceed with above procedure. Moderate sedation performed with propofol. FINDINGS: Overall LVEF does appear normal. The aortic valve is very difficult to visualize. There appeared to be metal clips which cause increased shadowing. Leaflets not well seen or defined. IMPRESSION: 1. Severe aortic stenosis noted by mean and peak gradient. 2. Ill-defined aortic valve leaflets due to increased shadowing. RECOMMENDATIONS: I did speak with Dr. Lance Horton at [facility] in addition to Dr. Felipe Cardona. It is preferable that Mr. Sheth be transferred to [facility] for further disposition. The patient has a history of congenital heart disease and has had 2 surgeries in the past. Given that his valve is ill-defined, we would recommend further workup for possible aortic stenosis in addition to a root replacement given small LVOT. Job ID: [id number]
--- NOTE | 2020-11-15 13:10 | DIS ---
DATE OF ADMISSION: 11/11/2020 DATE OF DISCHARGE: 11/14/2020 DISCHARGE DISPOSITION: To [facility] under Dr. Horton for higher level of care. PRIMARY DISCHARGE DIAGNOSES: 1. Severe aortic stenosis with history of congenital bicuspid valve and a prior porcine aortic valve replacement in the past. 2. Acute flash pulmonary edema secondary to aortic stenosis, resolved. 3. Obesity. PROCEDURES DONE DURING HOSPITALIZATION: Chest x-ray done on the day of admission showed pulmonary vascular congestion. Transthoracic echo showed aortic valve to be severely thickened. Severe aortic stenosis is present. Peak gradient was 113 mmHg, mean gradient 73.89 mmHg, LVOT 12.41 cm. Transesophageal echo done by Dr. Lindsey on 11/14/2020, showed severe aortic stenosis noted by mean and peak gradients, ill-defined aortic valve leaflets due to increased shadowing. There appeared to be metal clips which caused increased shadowing. Leaflets were not well seen or defined. H and H 15 and 45 platelet count 199, MCV 98, BUN 24, creatinine 0.9. BNP 1723. Albumin 3.8 co with 19 PCR was not detected on 11/11/2020. DISCHARGE MEDICATIONS: 1. Aspirin 325 mg p.o. daily. 2. Metoprolol 12.5 mg twice daily. ALLERGIES: NO KNOWN DRUG ALLERGIES. INPATIENT CONSULT: 1. Dr. Felipe Cardona for Cardiothoracic and Vascular Surgery. 2. Dr. Lindsey for Cardiology. BRIEF COURSE DURING HOSPITALIZATION: The patient initially got admitted on the with complaints of shortness of breath. He was recently discharged after having flash pulmonary edema with suspected severe aortic stenosis. He has had recurrent hospitalization for the same reason and was placed on BiPAP and had gentle diuresis done, which has resolved his pulmonary vascular congestion. He has had a transthoracic echo which showed elevated gradients with severe aortic stenosis. Transesophageal echo was done wall, with which his valve leaflets could not be visualized due to metal clips in the area. Also, the patient's LVOT was small and given his prior history of congenital likely bicuspid valve with prior repair when he was 8 years old and a repeat procedure with porcine valve done in 2012, the patient was deemed appropriate to be transferred to higher level of care. Dr. Lindsey has spoken to Dr. Lance Horton at [facility] in [place] who accepted the patient. He will be shortly discharged there. Please see a [id number] documentation for the day of discharge on [employer]. Job ID: [id number]
--- NOTE | 2020-11-17 10:08 | EKG ---
Test Reason : Blood Pressure : / mmHG Vent. Rate : 124 BPM Atrial Rate : 124 BPM P-R Int : 104 ms QRS Dur : 088 ms QT Int : 422 ms P-R-T Axes : 035 -08 106 degrees QTc Int : 606 ms Sinus tachycardia with short NH with occasional Premature ventricular complexes Left ventricular hypertrophy with repolarization abnormality Abnormal ECG Confirmed by Des NEAL ([id number]), food expeditor SHAHRAM CORADO ([id number]) on 11/17/2020 10:08:13 AM Referred By: Confirmed By:Des NEAL
--- NOTE | 2020-11-17 13:31 | PQF ---
CLINICAL DOCUMENTATION CLARIFICATION FORM: Dear : ELSY TIAN MD Date / Time: 11/17/2020 Please exercise your independent, professional judgment in responding to the clarification form. Clinical indicators are provided on the bottom of this form for your review Please check appropriate box(es): ACUTE HEART FAILURE : with flash pulmonary edema secondary to severe aortic stenosis, has normal systolic and diastolic function. [ ] Systolic / HFrEF [ ] Diastolic / HFpEF [ ] Combined Systolic / Diastolic [ ] Unable to determine In addition, please specify: Present on Admission (POA): [ x ] Yes [ ] No [ ] Unable to determine Physician Signature: Date/Time: For continuity of documentation, please document condition throughout progress notes and discharge summary. Thank You. To be completed by CDI/Coding staff for physician review: Present Clinical Indicators - Signs / Symptoms / Labs Results and Location in Medical Record [ ] Ejection Fraction = % [ ] Dyspnea, Hypoxia [x] Peripheral edema mild edema Consult on 11/13 [x] Elevated BNP 1723.9 Laboratory on 11/12 [x] Acute onset heart failure Progress notes on 11/12 [x] SOB H&P on 11/11 [ ] Pleural effusion / pulmonary edema [x] Based on chest x ray & CT findings, high suspicion for acute pulmonary edema H&P on 11/11 [ ] Arrhythmia--tachycardia Present Risk Factors Results and Location in Medical Record [ ] History of CAD/ischemic heart disease [x] Hypertension H&P on 11/11 [ ] History of GA Present Treatments Results and Location in Medical Record [ ] Administration of NADINE / ARB / BB [x] Lasix 40 mg PO Medication from 11/12 to 11/14 [x] Lasix 100mg IV Medication on 11/12 [ ] Oxygen [ ] AICD [x] Cardiology Consult Consult on 11/13 CDS/Concrete Float Maker Signature: AAS Phone #: Date/Time: 11/17/2020 This is a permanent part of the Medical Record [facility]
== END 2020-11-14 18:29 | disposition short-term general hospital (02) | DRG 286 ==
LOC: ERS 22:04 → ERHOLD 23:55 → IMCU/EMU 11-12 10:44
PROVIDERS: ADMIT Internal Medicine; ATTEND Internal Medicine
PROC: 4A023N7 Measurement of Cardiac Sampling and Pressure, Left Heart, Percutaneous Approach (ICD-10-PCS; 2020-11-10)
PROC: B2111ZZ Fluoroscopy of Multiple Coronary Arteries using Low Osmolar Contrast (ICD-10-PCS; 2020-11-10)
PROC: 8E0ZXY6 Isolation (ICD-10-PCS; principal; 2020-11-11)
PROC: B24BZZ4 Ultrasonography of Heart with Aorta, Transesophageal (ICD-10-PCS; 2020-11-14)
DX: I35.0 Nonrheumatic aortic (valve) stenosis (principal); J18.9 Pneumonia, unspecified organism; J96.01 Acute respiratory failure with hypoxia; J81.0 Acute pulmonary edema; E66.9 Obesity, unspecified; R77.8 Other specified abnormalities of plasma proteins; D72.829 Elevated white blood cell count, unspecified; Z95.4 Presence of other heart-valve replacement; Z79.82 Long term (current) use of aspirin; Z79.899 Other long term (current) drug therapy; Z82.49 Family history of ischemic heart disease and other diseases of the circulatory system; Z68.35 Body mass index [BMI] 35.0-35.9, adult; Z95.2 Presence of prosthetic heart valve; I10 Essential (primary) hypertension; R00.0 Tachycardia, unspecified; R94.31 Abnormal electrocardiogram [ECG] [EKG]
CPT/HCPCS: 0240U; 36415; 36600; 71045; 71275; 76942; 80048; 80053; 82550; 82553; 82805; 83605; 83690; 83880; 84484; 85007; 85025; 85027; 85379; 85610; 85730; 87040; 87635; 93005; 93306; 93312; 93454; 94760; 96365; 96367; 96374; 96375; 96376; 99152; G0378; J0153; J0456; J0696; J1644; J1650; J1940; J2060; J2250; J2704; J3010; J3490; Q9967; U0003; U0005